=== PATIENT | female | born 1965 | race Caucasian/White ===

== ENCOUNTER 2025-06-06 12:31 | Day surgery (SDC) | payer OTHER ==
[~2025-06-06] VITALS: Ht 162.6 cm; Wt 72.0 kg
[~2025-06-06 12:31] MED LIST: IBLOOD GLUCOSE TEST STRIP 1 EA TEST VI PRN; IMITREX50 MG PO; LACTATED RINGER'S 1,000 ML IV SCH; LIDOCAINE HCL 1% 5 ML SDV INJ ONE; LOSARTAN-HCTZ1 EACH PO; MIDAZOLAM HCL 5 MG/5 ML VIAL IV PRN; OMEPRAZOLE20 M1 PO; PROMETHAZINE HC25 M1 PO; SINGULAIR10 MG PO; TOPROL XL50 MG PO; VENTOLIN HFA18 GM INH; WIXELA 250-501 EACH INH; fentaNYL citrate 100 MCG/2 ML VIAL IV PRN
[2025-06-06 12:49] VITALS: BP 131/80
[2025-06-06] MEDS ORDERED: ZYRTEC10 M3 PO (13:36)
[2025-06-06] MEDS ORDERED: MIDAZOLAM HCL 5 MG/5 ML VIAL ONE ×2 (16:42→17:46)
[2025-06-06] MEDS ORDERED: fentaNYL citrate 100 MCG/2 ML VIAL ONE (16:42)
--- NOTE | 2025-06-06 18:00 | NUR ---
06/06/25 1800 Amelia Leahy 1751-PT ARRIVES TO PACU ON 6L VIA MASK. PT IS LAYING IN LEFT SIDE. PT ARROUSABLE TO VERBAL STIMULI. RESP EVEN AND UNLABORED.
--- NOTE | 2025-06-07 12:50 | OR ---
[facility] [address], [place] [address] Signed DATE OF OPERATION: 06/06/2025 SURGEON: Seymour Murillo MD PREOPERATIVE DIAGNOSIS: Colon screening. POSTOPERATIVE DIAGNOSES: 1. Linear adenomatous polyp of cecum and sessile polyp of the left transverse colon, both greater than 1 cm. 2. Sigmoid diverticula. PROCEDURES: 1. Total colonoscopy to cecum with mucosal lift and Endo noreen tattoo dye elongated cecal polyp. 2. Cold morcellation polypectomy, left transverse colon polyp. ANESTHESIA: Intravenous sedation; fentanyl 200 mcg and Versed 11 mg total. INDICATION: This 60-year-old woman is a patient of NITA Ram and last underwent colonoscopy in 2014. She has no family history of colon cancer, but her father did have polyps. She is already diagnosed having celiac disease. Screening colonoscopy based on interval of time has been recommended, though she is symptom free having no bleeding, diarrhea, or constipation. She understands the risk of colonoscopy including, but not limited to bleeding, infection, and perforation and wishes to proceed. FINDINGS: The prep was good. Complete colonoscopy was undertaken of the cecum. There was a somewhat complex elongated-appearing polyp of the cecum, which required mucosal lift technique using Endo noreen tattoo dye and cold snare technique as well as morcellation excision. Hemoclip was used to secure the mucosal area. Additionally, she had a sessile polyp greater than 1 cm of the left transverse colon, excised completely with cold morcellation technique. Diverticula of the sigmoid were otherwise normal. DESCRIPTION OF PROCEDURE: The patient was brought to the endoscopy suite and placed in lateral decubitus position, given intravenous sedation to the point of slurred speech and nystagmus. Digital rectal examination was normal. Additional sedation was given as needed through the course of Electronically Signed By: SEYMOUR MURILLO MD 06/07/25 6620 PATIENT NAME: NICOLE ADAIR OPERATIVE REPORT DATE OF : 67 REPORT #: [id number] PHYSICIAN: SEYMOUR MURILLO MD PCP: SHERI WEI REPORT IS CONFIDENTIAL AND NOT TO BE RELEASED WITHOUT AUTHORIZATION [facility] [address], [place] [address] Signed the procedure. The Olympus video colonoscope was passed in the rectum and manipulated throughout the colon, ultimately intubating the cecum itself. Irrigation was undertaken in the colon and found was a linear polyp of the colonic fold, which was quite clearly adenomatous, though it was rather subtle at initial presentation. Narrow band imaging confirmed this. Mucosal lift technique was deemed most advisable. Using a sclerotherapy needle and spot ink, mucosal lift injection was undertaken. The polyp was then excised with cold snare technique. Any remnants were additionally excised with cold morcellation technique. The mucosal defect was such that reapproximation with a hemoclip was appropriate and was performed without problem. The scope was then withdrawn and in the left transverse colon was a somewhat sessile polyp, though it was not high profile. The snare could not easily fit through the channel of the scope and on that basis, multiple bites were taken with morcellation technique ablating the polyp completely. Further withdrawal of scope showed no other abnormality other than diverticula of the sigmoid. Scope was removed and the patient was taken to recovery room in good condition. CONCLUDING DIAGNOSES: Polyps x2 and diverticulosis. PLAN: Recommend repeat colonoscopy in 2-3 years based on the pathology and findings today. Sooner if symptoms. Recommend high-fiber diet as well. She will return to the ongoing care of NITA Ram. Seymour Murillo MD /OPALL /[id number] cc: NITA Ram Copies: SHERI WEI ~ Electronically Signed By: SEYMOUR MURILLO MD 06/07/25 1250 PATIENT NAME: NICOLE ADAIR OPERATIVE REPORT DATE OF : 67 REPORT #: [id number] PHYSICIAN: SEYMOUR MURILLO MD PCP: SHERI WEI REPORT IS CONFIDENTIAL AND NOT TO BE RELEASED WITHOUT AUTHORIZATION
== END 2025-06-06 18:50 | disposition home or self-care (01) ==
LOC: DS 12:31 → OPS 12:31 → DS 13:45 → OPS 13:45
PROVIDERS: ATTEND Surgery
PROC: 0DBH8ZX Excision of Cecum, Via Natural or Artificial Opening Endoscopic, Diagnostic (ICD-10-PCS; 2025-06-06)
PROC: 0DBL8ZX Excision of Transverse Colon, Via Natural or Artificial Opening Endoscopic, Diagnostic (ICD-10-PCS; 2025-06-06)
PROC: 3E0H8KZ Introduction of Other Diagnostic Substance into Lower GI, Via Natural or Artificial Opening Endoscopic (ICD-10-PCS; principal; 2025-06-06 13:45)
DX: Z12.11 Encounter for screening for malignant neoplasm of colon (principal); D12.0 Benign neoplasm of cecum; D12.3 Benign neoplasm of transverse colon; K57.30 Diverticulosis of large intestine without perforation or abscess without bleeding; I10 Essential (primary) hypertension; K90.0 Celiac disease; Z88.8 Allergy status to other drugs, medicaments and biological substances; Z79.899 Other long term (current) drug therapy
CPT/HCPCS: 88305; 99153; G0500; J2250; J3010